=== PATIENT | female | born 1995 | race Caucasian/White ===

== ENCOUNTER 2018-01-29 09:47 | Outpatient (CLI) | payer OTHER, MEDICAID, SELFPAY ==
--- NOTE | 2018-01-29 17:54 | PM.OBTRLD ---
Evaluation Evaluation Baseline heart rate: 140 Variability: Moderate (11-25) monitor accelerations: Present monitor decelerations: Absent Contraction Frequency (minutes): 10 Uterine Contraction Intensity: Mild Category of Tracing: I Cervical dilation (cm): 1 Cervical effacement (%): 50 station: -1
== END 2018-01-29 10:50 | disposition home or self-care (01) ==
LOC: OB 01-30 09:26
PROVIDERS: PCP Obstetrics & Gynecology; Visit Provider Obstetrics & Gynecology
DX: O32.1XX0 Maternal care for breech presentation, not applicable or unspecified (principal); Z3A.33 33 weeks gestation of pregnancy; F12.90 Cannabis use, unspecified, uncomplicated; O99.323 Drug use complicating pregnancy, third trimester
CPT/HCPCS: 59025; G0378; G0379

== ENCOUNTER 2018-02-05 15:29 | Outpatient (CLI) | payer OTHER, MEDICAID, SELFPAY ==
--- NOTE | 2018-02-06 13:51 | PM.OBTRLD ---
Visit Information Visit Information Date of evaluation: 02/05/18 Primary OB Provider: Deborah Angulo Reason for Evaluation: Yes non-stress test Comments/Additional reasons for admission: 2 vessel cord advanced age placenta Evaluation Evaluation Baseline heart rate: 140 Variability: Moderate (11-25) monitor accelerations: Present monitor decelerations: Absent Category of Tracing: I
== END 2018-02-05 16:32 | disposition home or self-care (01) ==
LOC: OB 02-06 14:52
PROVIDERS: PCP Obstetrics & Gynecology; Visit Provider Obstetrics & Gynecology
DX: O43.893 Other placental disorders, third trimester (principal); Z3A.34 34 weeks gestation of pregnancy
CPT/HCPCS: 59025; G0378; G0379

== ENCOUNTER 2018-02-11 13:09 | Observation (INO) | payer OTHER, MEDICAID, SELFPAY ==
[2018-02-12 14:30] LABS: Strep Grp B PCR NEG for Grp B Strep
== END 2018-02-11 13:46 | disposition home or self-care (01) ==
LOC: LABOR 13:11
PROVIDERS: Admitting Provider Obstetrics & Gynecology; PCP Obstetrics & Gynecology; Visit Provider Obstetrics & Gynecology
DX: O41.03X0 Oligohydramnios, third trimester, not applicable or unspecified (principal); Z3A.35 35 weeks gestation of pregnancy
CPT/HCPCS: 59025; 87653; G0378

== ENCOUNTER 2018-02-15 11:11 | Outpatient (CLI) | payer OTHER, MEDICAID, SELFPAY ==
--- NOTE | 2018-02-15 11:41 | PM.OBTRLD ---
Visit Information Visit Information Date of evaluation: 02/15/18 Primary OB Provider: Deborah Angulo On-call OB Provider: Makenzie Jauregui Reason for Evaluation: Yes non-stress test Comments/Additional reasons for admission: Primigravida at 36 weeks 1 day with borderline FUNMILAYO and grade 2 placenta Evaluation Evaluation Baseline heart rate: 130 Variability: Moderate (11-25) monitor accelerations: Present monitor decelerations: Absent Category of Tracing: I Diagnosis, Plan/Disposition Final Diagnosis (1) 36 weeks gestation of : Current Visit: No Status: Acute (2) Amniotic fluid index borderline low: Current Visit: No Status: Acute Plan/Disposition Plan: Reactive nonstress test. Patient was discharged home. Patient is to keep her OB appointment with Dr. Angulo.
== END 2018-02-15 11:45 | disposition home or self-care (01) ==
LOC: LABOR 11:28 → OB 02-19 14:18
PROVIDERS: PCP Obstetrics & Gynecology; Visit Provider Obstetrics & Gynecology
DX: O41.03X0 Oligohydramnios, third trimester, not applicable or unspecified (principal); Z3A.36 36 weeks gestation of pregnancy
CPT/HCPCS: 59025; G0378; G0379

== ENCOUNTER 2018-02-18 07:08 | Inpatient (IN) | payer OTHER, MEDICAID, SELFPAY ==
[2018-02-18] VITALS (7 sets, daily range): BP systolic 94–117; BP diastolic 44–79; PULSE 64–93; RESP 13–20; TEMP 36.2–36.4; O2SAT 95–100
[2018-02-18 08:31] LABS: Add Manual Diff / Slide Review NO; Basophils Percent Auto 0.3 % (0-2); Eosinophils Percent Auto 0.7 % (2-4); Hemoglobin 12.1 g/dL (12.0-16.0); Lymphocytes Percent Auto 19.9 % (25-40); Mean Corpuscular HGB Conc 34.6 % (30-36); Mean Corpuscular Hemoglobin 30.6 PG (26-34); Mean Corpuscular Volume 88.2 fL (80-100); Monocytes Percent Auto 6.4 % (3-14); Neutrophils Absolute Auto 9400 /uL (3000-5900); Neutrophils Percent Auto 72.7 % (50-75); Platelet Count 190 X10^3/uL (150-400); Red Blood Cell Count 3.97 X10^6/uL (4.0-5.2); Red Cell Distribution Width 12.8 % (11.6-14.8)
[2018-02-18] MEDS: LACTATED RINGERS 1,000 ML 125 ML IV ×3 (08:47→11:51)
--- NOTE | 2018-02-18 10:22 | PM.PREOP ---
Pre-operative Note Interval Note Pre-op Check: History & Physical exam performed today
[2018-02-18] MEDS: CEFOTETAN 1 GM/50 ML PIGGYBACK IV (10:54)
--- NOTE | 2018-02-18 11:24 | SUR.OPER ---
Supine on Padded OR bed, head on pillow, safety belt at thigh, arms secured on padded arm boards at <90 degrees abduction. Bump under right buttock. Legs uncrossed with pillow under knees, gel pad to heels, tape over blanket to lower legs.
--- NOTE | 2018-02-18 11:40 | SUR.OPER ---
FHT 135 TOB 1130 am alive boy Cord blood x 2 and placenta are given to OB nurse
[2018-02-18] MEDS: MEPERIDINE 25 MG/ML SYRINGE IV (12:35)
[2018-02-18] MEDS: LACTATED RINGERS 1,000 ML 100 ML IV (13:00)
[2018-02-18] MEDS: NALBUPHINE 20 MG/ML AMPUL 5 MG IV (13:20)
[2018-02-18] MEDS: KETOROLAC 30 MG/ML VIAL IV (19:16)
[2018-02-18] MEDS: OXYCODONE/ACETAMINOPHEN 5/325 TABLET 1 TAB PO (19:21)
[2018-02-19] MEDS: OXYCODONE/ACETAMINOPHEN 5/325 TABLET 1 TAB PO ×3 (00:22→12:26)
[2018-02-19] MEDS: KETOROLAC 30 MG/ML VIAL IV ×2 (02:16→08:04)
[2018-02-19 05:15] LABS: Hematocrit 25.3 % (36-46); Hemoglobin 8.8 g/dL (12.0-16.0)
[2018-02-19] MEDS: PRENATAL VIT,CALC/IRON/FOLIC 1 TABLET 1 TAB PO (08:04)
--- NOTE | 2018-02-19 12:35 | P.OP_ITS ---
Operative Date/Time/Diagnoses - Date of procedure: 02/18/18 Time of procedure: 11:31 Pre-op diagnosis: Intrauterine at 36 and 4 7th weeks gestation Spontaneous rupture of membranes Breech presentation Post-op diagnosis: same Procedure: Procedures Operation Date: 02/18/18 09:45 Actual Procedures Side Surgeon p Section Not Applicable Deborah Angulo MD Indications: Intrauterine at 36 and 4 7th weeks gestation Spontaneous rupture of membranes Breech presentation Surgeon: Deborah Angulo Satellite Dish Installer: Tian Cerna Anesthesia Type: Spinal (With Duramorph) Operative Notes Findings: Live male in the complete breech presentation Normal uterus tubes and ovaries Closure Type: primary Specimen(s): other (Cord bloods, placenta) Applied: catheter Estimated blood loss (mL): 400 Blood products transfused: none Procedure in detail: The patient was taken to the operating room where she was placed in the seated position. Spinal anesthesia was administered. She was then placed in the dorsal supine position with a leftward tilt. She was prepped and draped in the usual sterile fashion. A timeout was performed. After spinal analgesia was found to be adequate, a Pfannenstiel skin incision was made 2 fingerbreadths above the pubic symphysis and carried through to the underlying layer fascia. The fascia was nicked in the midline, and the incision extended bilaterally with the Lawson scissors. The superior aspect of the fascial incision was grasped with a Tio clamps, elevated, and the underlying rectus muscles dissected off sharply and bluntly. Attention was then turned to the inferior aspect of this incision which in a similar fashion was grasped with a Terry clamps, elevated, and the underlying rectus muscles dissected off sharply and bluntly. The rectus muscles were in the midline. The peritoneum was identified, grasped between 2 hemostats, and entered sharply with the Metzenbaum scissors. This incision was extended superiorly and inferiorly with good visualization of the bladder. The bladder blade was inserted. The vesicouterine peritoneum was identified, grasped with the pickup, and entered sharply with the Metzenbaum scissors. This incision was extended bilaterally, and the bladder flap was created digitally. The bladder blade was reinserted. The lower uterine segment was incised in a transverse fashion with the scalpel. Upon entering the amniotic sac there was a small amount of clear amniotic fluid. The infant was delivered by total breech extraction. The nose and mouth were suctioned with bulb suction. The cord was double clamped and cut. The infant was handed off to waiting RN and RT. The placenta was delivered manually. The uterus was cleared of all clots and debris. The uterine incision was repaired with #1 chromic in a running interlocking fashion, and a second layer the same suture was used for an imbricating layer. Hemostasis was achieved. The tubes and ovaries were examined and were found to be normal. The gutters were cleared of all clots and debris. The bladder flap was reapproximated using 2-0 Vicryl in a running fashion. The parietal peritoneum was closed using 2-0 Vicryl in a running fashion. The fascia was reapproximated using 0 Vicryl in a running fashion. Subcutaneous layer was copiously irrigated with warm normal saline. 5 simple interrupted sutures of 3-0 Vicryl were placed to reapproximate the subcutaneous layer. The skin was closed with 4-0 undyed Vicryl in a subcuticular fashion. Steri-Strips were placed. An Aquacel dressing was placed. The uterus was expressed of a small amount of old blood. Sponge, lap, and instrument counts were correct x-2. The patient tolerated the procedure well, and was taken to PACU in stable condition. Complications: none Post-operative Condition: stable Disposition: PACU Plan for aftercare: To the Center after recovery
[2018-02-19] MEDS: OXYCODONE/ACETAMINOPHEN 5/325 TABLET 2 TAB PO ×2 (17:27→21:30)
[2018-02-19 21:30] VITALS: TEMP 36.7
[2018-02-20] MEDS: OXYCODONE/ACETAMINOPHEN 5/325 TABLET 2 TAB PO ×4 (01:30→21:15)
[2018-02-20] MEDS: PRENATAL VIT,CALC/IRON/FOLIC 1 TABLET 1 TAB PO ×2 (09:19→21:22)
[2018-02-20] MEDS: OXYCODONE/ACETAMINOPHEN 5/325 TABLET 1 TAB PO (12:29)
[2018-02-20] MEDS: LANOLIN OINT 7 GM 1 APPLIC TOP (21:14)
[2018-02-20] MEDS: IBUPROFEN 600 MG TABLET PO (21:22)
[2018-02-21] MEDS: OXYCODONE/ACETAMINOPHEN 5/325 TABLET 2 TAB PO (04:27)
[2018-02-21] MEDS: IBUPROFEN 600 MG TABLET PO (04:27)
[2018-02-21] MEDS: PRENATAL VIT,CALC/IRON/FOLIC 1 TABLET 1 TAB PO (09:12)
[2018-02-21] MEDS: OXYCODONE/ACETAMINOPHEN 5/325 TABLET 1 TAB PO (09:13)
[2018-02-21 09:54] VITALS: BP 105/74; PULSE 89; RESP 16; TEMP 36.4
--- NOTE | 2018-02-22 07:06 | PM.OBPN.1 ---
Subjective - OB Interval history: Postop day # 1 Status post primary low-transverse section secondary to breech presentation and spontaneous rupture of membranes Patient comments: incisional pain, tolerating diet and flatus present baby status: doing well and nursing well [place] feeding status: exclusively breast feeding Date Patient Seen: 02/19/18 Time Patient Seen: 07:45 Exam Vital Signs (past 8 hours): Pulse Oximetry 95 Oxygen Delivery Method Room Air Narrative Exam Narrative: Generally: Patient is sitting up in bed, holding infant, no acute distress Lungs: Clear to auscultation bilaterally Cardiovascular: Regular rate and rhythm Abdomen: Soft, good bowel sounds Fundus: Firm at U -2 Incision: Clean dry and intact with Aquacel dressing Extremities: Negative Homans, no edema Objective Labs Result Diagrams: 02/19/18 04:55 Assessment & Plan (1) Status post primary low transverse section: Status: Acute Assessment and plan: Assessment: 22-year-old postop day # 1 status post primary low-transverse section at 36 and 4 7th weeks gestation with breech presentation and spontaneous rupture of membranes Patient doing very well Plan: Continue routine postop care consultation Current Visit: No Plan day: 1 plan OB: routine postop care Time Spent With Patient Total time spent is greater than 50% in coordination of care (as documented) at patient's floor/unit and/or counseling patient: less than 15 minutes
--- NOTE | 2018-02-22 07:10 | PM.OBPN.1 ---
Subjective - OB Interval history: Postop day # 2 Status post primary low-transverse section secondary to breech presentation and spontaneous rupture of membranes Patient comments: incisional pain, tolerating diet and flatus present baby status: doing well and nursing well [place] feeding status: exclusively breast feeding Date Patient Seen: 02/20/18 Time Patient Seen: 13:45 Exam Vital Signs (past 8 hours): Pulse Oximetry 95 Oxygen Delivery Method Room Air Narrative Exam Narrative: Generally: Patient is sitting up in bed, no acute distress Fundus: Firm at U -3 Incision: Clean dry and intact with Aquacel dressing Extremities: Negative Homans, no edema Objective Labs Result Diagrams: 02/19/18 04:55 Assessment & Plan (1) Status post primary low transverse section: Status: Acute Assessment and plan: Assessment: Postop day # 2 status post primary low-transverse section for breech presentation and spontaneous rupture of membranes, doing very well Plan: Patient would like to stay another day for help Current Visit: No Plan day: 2 plan OB: routine postop care Time Spent With Patient Total time spent is greater than 50% in coordination of care (as documented) at patient's floor/unit and/or counseling patient: less than 15 minutes
--- NOTE | 2018-02-22 07:15 | P.DS_ITS ---
Discharge Providers Date of admission: 02/18/18 08:12 Primary care physician: Deborah Angulo MD Consults: 02/18/18 13:52 Consult to Kosher Butcher Routine Comment: Discharge provider: Deborah Angulo MD Summary Date Patient Seen: 02/21/18 Time Patient Seen: 10:13 Peripartum Data Delivery Method: Section (Breech, ruptured membranes, 36 and 4 7th weeks) Procedures: Spinal anesthesia Primary low-transverse section complications: none Discharge Diagnosis (1) Status post primary low transverse section: Status: Acute (2) Breech presentation: Status: Acute (3) 36 weeks gestation of : Status: Acute Status at Discharge Functional status at discharge: independent ambulation Overall status at discharge: patient is progressing back to baseline Time Spent with Patient Total time spent providing and/or coordinating discharge services: Less than 30 minutes Objective Labs Result Diagrams: 02/19/18 04:55 Discharge Plan Discharge Plan Patient Disposition: Home, Self-Care Discharge Med Rec/Prescriptions Prescriptions: New oxycodone-acetaminophen [Percocet] 5-325 mg tablet 2 tab PO Q4-6H PRN (Reason: pain) Qty: 30 RF: 0 Continue PNV cmb#95-ferrous fumarate-FA [] 28 mg iron- 800 mcg Tablet 1 tab PO DAILY RF: 0 Follow up/Referrals: Deborah Angulo MD [Primary Care Provider] - (Appointment on Sunday,February at 1:45pm Homevisit with TANO Mendoza on February at 1PM) Visit Report/Discharge Packet Instructions: DI for Visit Report Forms: Stroke Signs & Symptoms Discharge Data Primary Care Provider: Deborah Angulo Attending Provider: Deborah Angulo Admit Date/Time: 02/18/18 08:12 Discharges patient from system. Discharge Date/Time: 02/21/18 14:10
== END 2018-02-21 14:10 | disposition home or self-care (01) | DRG 540 ==
PROVIDERS: Admitting Provider Obstetrics & Gynecology; PCP Obstetrics & Gynecology; Visit Provider Obstetrics & Gynecology
PROC: 10D00Z1 Extraction of Products of Conception, Low, Open Approach (ICD-10-PCS; CPT 59514; principal; 2018-02-18 09:45)
DX: O42.013 Preterm premature rupture of membranes, onset of labor within 24 hours of rupture, third trimester (principal); Z3A.36 36 weeks gestation of pregnancy; Z37.0 Single live birth; O32.1XX0 Maternal care for breech presentation, not applicable or unspecified
CPT/HCPCS: 36415; 59050; 59514; 76815; 84112; 85014; 85018; 85025; 86850; 86900; 86901; G0378; G0379; J0131; J1885; J2175; J2300; J2405

== ENCOUNTER → 2019-05-06 09:59 | Outpatient (CLI) | payer OTHER, MEDICAID, SELFPAY ==
[2019-05-06 12:01] LABS: Free T4, Direct Thyroxine 0.81 ng/dL (0.78-2.19)
[2019-05-06 12:14] LABS: Thyroid Stimulating Hormone 0.64 uIU/mL (0.47-4.68)
== END ==
PROVIDERS: PCP Obstetrics & Gynecology; Visit Provider Obstetrics & Gynecology
DX: R23.2 Flushing (principal)
CPT/HCPCS: 36415; 84439; 84443

== ENCOUNTER 2019-06-07 09:59 | Emergency (ER) | payer OTHER, MEDICAID, SELFPAY ==
[2019-06-07 10:06] VITALS: BP 130/83; PULSE 82; RESP 18; TEMP 36.7; O2SAT 99; BMI 21.7
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
== END 2019-06-07 11:05 | disposition home or self-care (01) ==
PROVIDERS: Emergency Provider Emergency Medicine; PCP Obstetrics & Gynecology
DX: S93.602A Unspecified sprain of left foot, initial encounter (principal); V87.8XXA Person injured in other specified noncollision transport accidents involving motor vehicle (traffic), initial encounter
CPT/HCPCS: 73630; 99282; 99283

== ENCOUNTER → 2019-07-29 11:56 | Outpatient (CLI) | payer OTHER, MEDICAID, SELFPAY ==
[2019-08-02 22:19] LABS: Estradiol 61 pg/mL
== END ==
PROVIDERS: PCP Obstetrics & Gynecology; Visit Provider Obstetrics & Gynecology
DX: R45.86 Emotional lability (principal)
CPT/HCPCS: 36415; 82672

== ENCOUNTER → 2019-08-06 11:00 | Outpatient (CLI) | payer OTHER, MEDICAID, SELFPAY ==
[2019-08-06 12:46] LABS: HCG Quantitative /Beta subunit < 2.39 mIU/mL
== END ==
PROVIDERS: PCP Obstetrics & Gynecology; Visit Provider Obstetrics & Gynecology
DX: N91.2 Amenorrhea, unspecified (principal)
CPT/HCPCS: 36415; 84702

== ENCOUNTER → 2022-03-22 12:34 | Outpatient (CLI) | payer OTHER, MEDICAID, SELFPAY ==
--- NOTE | 2022-03-22 12:36 | DI.MRI.S_ITS ---
PROCEDURE: MR SHOULDER RT WO CON INDICATIONS: Primary osteoarthritis, right shoulder TECHNIQUE: Noncontrast oblique coronal T2 fast spin echo with fat saturation, oblique sagittal T1 spin echo and T2 fast spin echo with fat saturation, axial T1 spin echo and T2 fast spin echo with fat saturation through the shoulder. COMPARISON: [facility], CR, XR SHOULDER 2+ VIEWS RIGHT, 02/08/2022, 9:52. FINDINGS: Image quality: Partially degraded by motion artifact. Rotator cuff: The supraspinatus, infraspinatus, and subscapularis tendons appear intact throughout. Sagittal images demonstrate no muscle atrophy. Bones and bursae: No bone marrow contusions or fractures. Moderate acromioclavicular joint degeneration. The acromion demonstrates conventional anatomy, without an os acromiale. No pathologic subacromial-subdeltoid or subcoracoid bursal fluid is present. Capsule and soft tissues: Labrum is grossly unremarkable The long head of the biceps tendon demonstrates normal location and morphology. The rotator interval appears normal, without fibrosis. The coracohumeral ligament is normal in thickness. IMPRESSION: 1. Acromioclavicular joint osteoarthritis. 2. No rotator cuff tear. Dictated by: Aimee Snow M.D. on 03/22/2022 at 14:28 Transcribed by: CARINA on 03/22/2022 at 14:29 Approved by: Aimee Snow M.D. on 03/22/2022 at 16:56
== END ==
PROVIDERS: PCP Internal Medicine; Referring Provider Orthopaedic Surgery; Visit Provider Orthopaedic Surgery
DX: M19.011 Primary osteoarthritis, right shoulder (principal)
CPT/HCPCS: 73221

== ENCOUNTER 2022-04-26 22:06 | Emergency (ER) | payer OTHER, MEDICAID, SELFPAY ==
[2022-04-26 22:25] VITALS: BP 138/82; PULSE 85; RESP 18; TEMP 36.2; O2SAT 100; BMI 20.4
[2022-04-26] MEDS: OXYCODONE/ACETAMINOPHEN 5/325 TABLET 2 TAB PO (22:48)
[2022-04-26] MEDS: ONDANSETRON 4 MG ODT SL (22:48)
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
== END 2022-04-26 23:46 | disposition home or self-care (01) ==
PROVIDERS: Emergency Provider Emergency Medicine; PCP Internal Medicine
DX: T23.002A Burn of unspecified degree of left hand, unspecified site, initial encounter (principal); X19.XXXA Contact with other heat and hot substances, initial encounter
CPT/HCPCS: 99283; 99284

== ENCOUNTER → 2022-07-05 16:43 | Outpatient (CLI) | payer OTHER, MEDICAID, SELFPAY ==
[2022-07-05 17:25] LABS: Add Manual Diff / Slide Review NO; Basophils Absolute Auto 0 /uL (0-100); Basophils Percent Auto 0.4 % (0-2); Eosinophils Absolute Auto 100 /uL (0-450); Eosinophils Percent Auto 0.7 % (2-4); Hematocrit 39.1 % (36-46); Hemoglobin 13.5 g/dL (12.0-16.0); Lymphocytes Absolute Auto 3600 /uL (1100-4500); Lymphocytes Percent Auto 35.1 % (25-40); Mean Corpuscular HGB Conc 34.4 % (30-36); Mean Corpuscular Hemoglobin 29.9 PG (26-34); Mean Corpuscular Volume 86.9 fL (80-100); Monocytes Absolute Auto 700 /uL (0-900); Monocytes Percent Auto 6.3 % (3-14); Neutrophils Absolute Auto 6000 /uL (1500-7000); Neutrophils Percent Auto 57.5 % (50-75); Platelet Count 251 X10^3/uL (150-400); Red Blood Cell Count 4.49 X10^6/uL (4.0-5.2); Red Cell Distribution Width 12.6 % (11.6-14.8); White Blood Cell Count 10.4 X10^3/uL (4.5-11.0)
[2022-07-05 17:58] LABS: Alanine Aminotransferase 13 IU/L (<35); Albumin 4.7 g/dL (3.5-5.0); Albumin Globulin Ratio 1.4 (1.0-2.8); Alkaline Phosphatase 61 U/L (38-126); Aspartate Aminotransferase 25 IU/L (14-36); BUN Creatinine Ratio 17.2 (6-22); Bilirubin Total 0.6 mg/dL (0.2-1.3); Blood Urea Nitrogen 10 mg/dL (7-17); Calcium 9.2 mg/dL (8.4-10.2); Carbon Dioxide 26 mmol/L (22-32); Chloride 103 mmol/L (98-107); Estimated Glomerular Filt Rate > 60 mL/min (>60); Globulin 3.3 g/dL (1.7-4.1); Glucose 90 mg/dL (70-100); HEMOLYSIS < 15 (0-50); Potassium 4.2 mmol/L (3.4-5.1); Sodium 140 mmol/L (137-145)
[2022-07-05 18:26] LABS: TSH w/ Reflex to FT4 0.41 uIU/mL (0.47-4.68)
[2022-07-05 18:36] LABS: Vitamin D 25 Hydroxy (D3) 33.2 ng/mL (30.0-100.0)
[2022-07-05 18:44] LABS: Vitamin B12 428 pg/mL (239-931)
[2022-07-05 19:07] LABS: Free T4, Direct Thyroxine 1.22 ng/dL (0.78-2.19)
== END ==
PROVIDERS: PCP Family Medicine; Referring Provider Family Medicine; Visit Provider Family Medicine
DX: F32.9 Major depressive disorder, single episode, unspecified (principal); F41.1 Generalized anxiety disorder; L65.9 Nonscarring hair loss, unspecified
CPT/HCPCS: 36415; 80053; 82306; 82607; 84439; 84443; 85025

== ENCOUNTER → 2022-07-14 09:01 | Outpatient (CLI) | payer OTHER, MEDICAID, SELFPAY ==
[2022-07-14 10:43] LABS: COVID19 -Nasal RAPID Negative (Negative)
== END ==
PROVIDERS: PCP Family Medicine; Visit Provider Obstetrics & Gynecology
DX: Z20.822 Contact with and (suspected) exposure to COVID-19 (principal); Z01.812 Encounter for preprocedural laboratory examination
CPT/HCPCS: 87635; C9803

== ENCOUNTER 2022-07-17 07:33 | Day surgery (SDC) | payer OTHER, MEDICAID, SELFPAY ==
[2022-07-17] VITALS (10 sets, daily range): BP systolic 114–135; BP diastolic 63–88; PULSE 70–92; RESP 15–24; TEMP 35.9–36.8; O2SAT 98–100
--- NOTE | 2022-07-17 | PATH_ITS ---
[facility] Accession Number: [id number] . 01 Material submitted: . fallopian tube - RIGHT AND LEFT TUBES . 01 Diagnosis: Right and Left Fallopian Tubes, Bilateral Salpingectomy: Two fimbriated fallopian tubes without significant pathologic abnormality. - Small benign paratubal cyst identified unilaterally. . [facility] 07/20/2022 1844 Local . 01 Electronically signed: . Noris Thompson MD, Pathologist NPI- [id number] . 01 Gross description: . The specimen is received in formalin labeled with the patient's name, , and right and left fallopian tubes, and consists of two unoriented, fimbriated fallopian tubes measuring 4.6 x 0.9 cm and 5.5 x 0.9 cm, respectively. The longer fallopian tube has congested smooth serosa with a cystic structure near the fimbriated end measuring 1.0 cm in greatest dimension filled with clear serous fluid. Sectioning reveals an unremarkable stellate lumen. The shorter fallopian tube has congested smooth serosa with no cystic structures identified, and sectioning reveals an unremarkable stellate lumen. Director Of Employee Development sections to include the entire bisected fimbriae and credit resolution representative cross-sections are submitted as follows: . A1: Longer fallopian tube. A2: Waddy fallopian tube. ([id number]) /MRV 07/19/2022 1510 Local . 01 Pathologist provided ICD-10: Z30.2 . 01 CPT . 014894 Specimen Comment: A courtesy copy of this report has been sent to [phone] Performed at: 01 [facility] [address] [place] [address] [address], [place], [place] [id number] MD Marek Reddy MD Phone: [phone]
[2022-07-17] MEDS: LACTATED RINGERS 1,000 ML 100 ML IV ×2 (08:20→09:06)
--- NOTE | 2022-07-17 09:01 | PM.HP.1 ---
History of Present Illness History of Present Illness Date Patient Seen: 07/17/22 Time Patient Seen: 09:08 Chief complaint: SDC Narrative: Patient is a 27-year-old 1 para 1 who desires permanent sterilization. She presents for a laparoscopic bilateral salpingectomy. Patient History Medical History (Updated 07/14/22 @ 09:31 by Estefania Redding DO) Chronic back pain Fibromyalgia Foot pain (~2020) NANCY (generalized anxiety disorder) Gastrointestinal disease (~2020) Hearing loss Major depression Marijuana use Patient denies significant medical history Substance abuse Surgical History (Updated 07/06/22 @ 22:06 by Caterina Rivera) Anesthesia History of tonsillectomy (~2007) S/P section (02/18/18) Family & Social History Social History: household members spouse,children Tobacco & Substance use: Tobacco type cannabis/marijuana Smoking Status Current every day smoker alcohol intake never Substance Use Type does not use,former substance user Meds Home Medications and Allergies Home Medications Medication Instructions Recorded Confirmed Type hydroxyzine HCl 25 mg tablet 25 mg PO Q6H PRN anxiet #90 tabs 07/05/22 07/13/22 Rx escitalopram oxalate 5 mg tablet 5 mg PO DAILY #30 tabs 07/14/22 07/17/22 Rx (Lexapro) Allergies Allergy/AdvReac Type Severity Reaction Status Date / Time duloxetine Allergy Intermediate Vomiting Verified 07/17/22 08:05 hydrocodone [From VICODIN] Allergy Mild ITCHING Verified 07/17/22 08:05 Sulfa (Sulfonamide Allergy swelling Verified 07/17/22 08:05 Antibiotics) Exam Vital Signs (past 8 hours): - 07/17/22 08:21 Temperature 98.2 F Pulse Rate 92 H Respiratory Rate 16 Blood Pressure 123/87 Pulse Oximetry 98 Oxygen Delivery Method Room Air Oxygen Delivery Method Room Air Narrative Exam Narrative: HEENT: No thyromegaly, no anterior cervical or supraclavicular lymphadenopathy. Lungs:Clear to auscultation bilaterally, no wheezes. Cardiovascular: Regular rate and rhythm, no murmurs, rubs, or gallops. Abdomen: Well-healed Pfannenstiel scar. No hepatosplenomegaly. No masses palpable. External genitalia: Normal Vagina: Normal Cervix: Normal Bimanual exam: 7 Week size uterus. Mobile. No adnexal masses or tenderness. Extremities: No edema Assessment & Plan Assessment & Plan narrative: Assessment: 27-year-old 1 para 1 who desires permanent sterilization Plan: Laparoscopic bilateral salpingectomy The risks, benefits, and alternatives to the procedure were explained to the patient. The risks including bleeding, infection, injury to the bowel, bladder, or ureters. She understands that this is a permanent procedure. She understands all of these risks and agrees to proceed. A full par Q was held and consent form was signed. COVID-19 COVID-19 status: Negative Result date/Date tested (Pos, Neg/Pending): 07/14/22 Time Spent With Patient Time with patient: less than 30 minutes Critical Care time: I spent a total of [] minutes of critical care time on this patient's care today; this time is exclusive of procedural time.
[2022-07-17] MEDS: SCOPOLAMINE 1 PATCH TOP (09:06)
--- NOTE | 2022-07-17 09:11 | PM.PREOP ---
Pre-operative Note COVID-19 COVID-19 status: Negative Result date/Date tested (Pos, Neg/Pending): 07/14/22 Criteria for continued procedure: Non-surgical alternatives not available or appropriate per current SOC Interval Note History & Physical reviewed/Exam performed by Physician: Yes Changes to H&P: No H&P completed within 30 days and has changed as indicated here:: 07/17/22
--- NOTE | 2022-07-17 09:37 | SUR.OPER ---
Lithotomy on padded OR bed, head on pillow, arms secured wrapped in gel pads and tucked against body. Legs secured in padded yellow fins stirrups.
[2022-07-17] MEDS: BUPIVACAINE 0.5% W/ EPI (PF) 30 ML VIAL INJ (09:54)
--- NOTE | 2022-07-17 10:02 | PM.GYNOP.1 ---
Operative Date/Time/Diagnoses Date of procedure: 07/17/22 Time of procedure: 10:02 Pre-op diagnosis: Desires permanent sterilization Post-op diagnosis: same Procedure & Clinicians Procedure: Procedures Operation Date: 07/17/22 09:00 Actual Procedure Side Surgeon p Laparoscopic Salpingectomy, bilateral Bilateral Deborah Angulo MD Indications: Desires permanent sterilization Surgeon: Dbeorah Angulo Anesthesia Type: General and Local Operative Notes Findings: 7 week size anteverted uterus Normal tubes and ovaries Normal appendix Normal liver and gallbladder Omental to anterior abdominal wall adhesions in the midline just caudal to the umbilicus Closure Type: primary Specimen(s): left tube and right tube Applied: catheter (in/out) Estimated blood loss (mL): 10 Blood products transfused: none Procedure in detail: After informed consent was obtained, the patient was taken to the operating room where she was placed in the dorsal supine position. After adequate general endotracheal anesthesia was achieved, she was placed in the dorsal lithotomy position, and prepped and draped in the usual sterile fashion. A time-out was performed. A bivalve speculum was placed into the vagina and the anterior lip of the cervix was grasped with a single-tooth tenaculum. Cervical os was sequentially dilated until the Zumi uterine manipulator could pass easily into the endometrial cavity. The single-tooth tenaculum was removed from the anterior lip of the cervix. The bivalve speculum was removed from the vagina. Attention was then turned to the abdomen where 6 cc of 0.5% Marcaine with epinephrine were injected in the umbilical fold. A 5 mm incision was made. Veress needle was placed into the peritoneal cavity, and its placement confirmed by aspiration and drop test. The abdominal cavity was insufflated with 3.0 L of CO2. The Veress needle was removed, and a 5 mm trocar was placed without difficulty. A second incision was made left lateral of the midline after transillumination and 6 cc of 0.5% Marcaine with epinephrine were injected. A 5 mm incision was made. A second 5 mm trocar was placed under direct visualization. The camera was placed through the left lateral trocar. Using the power seal through the umbilical trocar, omental adhesions to the anterior abdominal wall were taken down. Hemostasis was achieved. The camera was moved to the umbilical trocar. A third incision was made after transillumination on the right side proximally 4 cm lateral to the midline after 6 cc of 0.5% Marcaine with epinephrine were injected. A 5 mm incision was made. A third 5 mm trocar was placed under direct visualization. The right tube was grasped with an atraumatic grasper. The mesosalpinx on the right side was cauterized and cut all the way down to the cornua of the uterus. The tube was amputated at the cornua. Hemostasis was achieved. This was repeated on the patient's left side. The tubes were removed through the left lateral trocar. The appendix was visualized and was normal. The gallbladder and liver were visualized and were normal. The tubes and ovaries were normal. Hemostasis was achieved in the pelvis. The instruments were removed from the abdomen. The CO2 was allowed to escape. The incisions were closed with 4-0 Monocryl in a subcuticular fashion. Steri-Strips and Allevyn dressings were placed. The Zumi uterine manipulator was removed from the uterus. Sponge, lap, and instrument counts were correct x2. The patient tolerated the procedure well, and was taken to PACU in stable condition. Complications: none Post-operative Condition: stable Disposition: PACU Plan for aftercare: Home after recovery
[2022-07-17] MEDS: OXYCODONE/ACETAMINOPHEN 5/325 TABLET 1 TAB PO (10:50)
--- NOTE | 2022-07-17 12:13 | SUR.PHASEII ---
Patient reported pain was resolved till she got dressed, then she reported 7/10 upper, mid abdominal pain that radiated to her right shoulder. Patient encouraged to move around gently for gas absorption, which she did. Dr. Angulo notified, no new orders. Patient reported pain resolved with movement.
== END 2022-07-17 11:32 | disposition home or self-care (01) ==
PROVIDERS: PCP Family Medicine; Referring Provider Obstetrics & Gynecology; Visit Provider Obstetrics & Gynecology
PROC: 0UT74ZZ Resection of Bilateral Fallopian Tubes, Percutaneous Endoscopic Approach (ICD-10-PCS; CPT 58661; principal; 2022-07-17 09:00)
DX: Z30.2 Encounter for sterilization (principal); N73.6 Female pelvic peritoneal adhesions (postinfective); N83.8 Other noninflammatory disorders of ovary, fallopian tube and broad ligament
CPT/HCPCS: 58661; 81025; J0330; J1100; J2405; J2704; J3010

== ENCOUNTER → 2023-08-14 11:53 | Outpatient (CLI) | payer OTHER, MEDICAID, SELFPAY ==
[2023-08-14 13:01] LABS: Alanine Aminotransferase 14 IU/L (<35); Albumin 4.5 g/dL (3.5-5.0); Albumin Globulin Ratio 1.5 (1.0-2.8); Alkaline Phosphatase 56 U/L (38-126); Aspartate Aminotransferase 21 IU/L (14-36); BUN Creatinine Ratio 10.5 (6-22); Bilirubin Total 0.5 mg/dL (0.2-1.3); Blood Urea Nitrogen 6 mg/dL (7-17); Calcium 9.4 mg/dL (8.4-10.2); Carbon Dioxide 25 mmol/L (22-32); Chloride 104 mmol/L (98-107); Estimated Glomerular Filt Rate > 60 mL/min (>60); Globulin 3.1 g/dL (1.7-4.1); Glucose 84 mg/dL (70-100); HEMOLYSIS < 15 (0-50); Potassium 3.9 mmol/L (3.4-5.1); Sodium 136 mmol/L (137-145); Total Protein 7.6 g/dL (6.3-8.2)
[2023-08-14 13:33] LABS: TSH w/ Reflex to FT4 0.47 uIU/mL (0.47-4.68)
== END ==
PROVIDERS: PCP Family Medicine; Referring Provider Psychiatry & Neurology Psychiatry; Visit Provider Psychiatry & Neurology Psychiatry
DX: F41.9 Anxiety disorder, unspecified (principal); R45.4 Irritability and anger; F90.2 Attention-deficit hyperactivity disorder, combined type; F51.04 Psychophysiologic insomnia
CPT/HCPCS: 36415; 80053; 84443; 90833; 99214

== ENCOUNTER → 2023-11-22 13:15 | Outpatient (CLI) | payer OTHER, MEDICAID, SELFPAY ==
[2023-11-23 15:09] LABS: Candida species Negative (Negative); Gardnerella vaginalis Positive (Negative); Trichomoas vaginalis Negative (Negative)
== END ==
PROVIDERS: PCP Family Medicine; Visit Provider Physician Assistant Medical
DX: N89.8 Other specified noninflammatory disorders of vagina (principal)
CPT/HCPCS: 87480; 87510; 87660

== ENCOUNTER → 2023-12-12 10:08 | Outpatient (CLI) | payer OTHER, MEDICAID, SELFPAY ==
[2023-12-12 12:06] LABS: Follicle Stimulating Hormone 6.54 mIU/mL; Progesterone, Total 1.06 ng/mL
[2023-12-12 12:22] LABS: Thyroid Stimulating Hormone 0.237 uIU/mL (0.47-4.68)
[2023-12-14 05:27] LABS: Free T3, Triiodothyronine Free 3.32 pg/mL (2.77-5.27); Free T4, Direct Thyroxine 1.15 ng/dL (0.78-2.19)
== END ==
PROVIDERS: PCP Family Medicine; Referring Provider Physician Assistant Medical; Visit Provider Physician Assistant Medical
DX: R23.2 Flushing (principal); N92.6 Irregular menstruation, unspecified; F41.9 Anxiety disorder, unspecified; R00.0 Tachycardia, unspecified; R68.89 Other general symptoms and signs
CPT/HCPCS: 36415; 82670; 83001; 84144; 84439; 84443; 84481

== ENCOUNTER → 2024-10-01 14:04 | Outpatient (CLI) | payer OTHER, SELFPAY ==
[2024-10-01 15:02] LABS: HCG Quantitative /Beta subunit < 2.39 mIU/mL
[2024-10-03 14:39] LABS: Candida species Negative (Negative); Gardnerella vaginalis Negative (Negative); Trichomoas vaginalis Negative (Negative)
== END ==
PROVIDERS: PCP Family Medicine; Referring Provider Specialist; Visit Provider Specialist
DX: N89.8 Other specified noninflammatory disorders of vagina (principal); N92.6 Irregular menstruation, unspecified
CPT/HCPCS: 36415; 84702; 87480; 87510; 87660